=== PATIENT | female | born 1970 | race African-American/Black ===

== ENCOUNTER → 2018-12-09 | Outpatient (CLI) | payer OTHER | LOC: M.RAD 15:09 | DX: Z12.31 Encounter for screening mammogram for malignant neoplasm of breast (principal) ==

== ENCOUNTER 2019-01-15 12:35 | Emergency (ER) | payer OTHER ==
[~2019-01-15] VITALS: Ht 165.1 cm; Wt 144.2 kg
[2019-01-15] MEDS ORDERED: ASPIR 8181 MG PO (12:43)
[2019-01-15] MEDS ORDERED: ALDACTONE50 MG PO (12:43)
[2019-01-15] MEDS ORDERED: ENTRESTO 49 MG1 EACH PO (12:43)
[2019-01-15] MEDS ORDERED: CARVEDILOL12.5 MG PO (12:44)
[2019-01-15 12:52] LABS: ABSOLUTE BASOPHILS 0.1 thou/uL (0.0-0.2); ABSOLUTE EOSINOPHILS 0.1 thou/uL (0.0-0.7); ABSOLUTE LYMPHOCYTES 2.1 thou/uL (0.8-5.3); ABSOLUTE MONOCYTES 0.3 thou/uL (0.0-1.2); ABSOLUTE NEUTROPHILS 3.8 thou/uL (1.6-8.1); EOSINOPHILS 1.7 %; HEMATOCRIT 37.3 % (37.0-47.0); HEMOGLOBIN 12.3 gm/dL (12.0-15.0); LYMPHOCYTES 32.8 %; MCH 28.5 pg (26.0-34.0); MCHC 32.9 g/dL (28.0-37.0); MCV 86.7 fL (80.0-100.0); MONOCYTES 4.3 %; MPV 6.6 fl. (7.2-11.1); NUCLEATED RBCS 0 /100WBC; PLATELET COUNT* 322 thou/uL (150-400); POLYS 60.2 %; RDW-CV 14.1 % (10.5-14.5); WBC 6.3 thou/uL (4.0-11.0)
[2019-01-15 13:05] LABS: ANION GAP 6 mmol/L (7-16); BUN 13 mg/dL (7-18); CALCIUM 8.8 mg/dL (8.5-10.1); CHLORIDE 102 mmol/L (98-107); CO2 29 mmol/L (21-32); CREATININE 0.9 mg/dL (0.6-1.3); GLUCOSE 114 mg/dL (70-99); POTASSIUM 3.6 mmol/L (3.5-5.1); SODIUM 137 mmol/L (136-145)
[2019-01-15 13:10] LABS: ALBUMIN 3.3 g/dL (3.4-5.0); ALKALINE PHOSPHATASE 84 U/L (46-116); LIPASE 77 U/L (73-393); SGOT 11 U/L (15-37); SGPT 18 U/L (30-65); TOTAL BILIRUBIN 0.5 mg/dL (<0.1-1.0); TOTAL PROTEIN 7.8 g/dL (6.4-8.2); TROPONIN-I LEVEL <0.06 ng/mL (<0.06)
[2019-01-15 14:24] VITALS: BP 147/69
--- NOTE | 2019-01-15 18:30 | EKG ---
[place] [address] ELECTROCARDIOGRAM REPORT Name: KIRILLROMMEL Room: [facility]#: [id number] Admission: 01/15/19 Attend Phys: Discharge: 01/15/19 Date of : 72 Report #: [id number] THIS REPORT FOR: //name// [facility] Test Date: 2019-01-15 Test Time: 13:34:19 Pat Name: ROMMEL ROY Department: Room: Gender: F Claims Collector: ALEJANDRA : 1970 Requested By: Alberto Flower Order Number: [id number] MD: Edwin Palmer Measurements Intervals [place] Rate: 93 P: 53 DE: 167 QRS: 24 QRSD: 100 T: 112 QT: 359 QTc: 447 Interpretive Statements Sinus rhythm delayed R wave progression low voltage in precordial leads' consider dextrocardia No previous ECG available for comparison Electronically Signed On 01-15-2019 18:30:31 [employer] CONSULTANT by Edwin Palmer [email or web address] <ELECTRONICALLY SIGNED> By: Edwin Palmer MD, [facility] 01/15/19 1830 D: 02/1333 Edwin Palmer MD, FACC /EPI
== END 2019-01-15 14:24 | disposition home or self-care (01) ==
LOC: M.ERS 12:35
PROVIDERS: Emergency Medicine Emergency Medical Services
DX: R55 Syncope and collapse (principal); R05 Cough; I11.0 Hypertensive heart disease with heart failure; I50.9 Heart failure, unspecified; Z90.49 Acquired absence of other specified parts of digestive tract

== ENCOUNTER → 2019-06-09 | Outpatient (CLI) | payer OTHER ==
[~2019-06-09] MED LIST: ALDACTONE50 MG PO; ASPIR 8181 MG PO; CARVEDILOL12.5 MG PO; ENTRESTO 49 MG1 EACH PO
--- NOTE | 2019-06-09 15:27 | 2DMMODE ---
[place] [address] 2 D/M-MODE ECHOCARDIOGRAM Name: ROMMEL ROY Room: [facility]#: [id number] Admission: 06/09/19 Attend Phys: Edwin Palmer, Discharge: Date of : 72 Date of Service: 06/09/19 1527 Report #: [id number] THIS REPORT FOR: //name// APPROVED REPORT Study performed: 06/09/2019 14:21:43 EXAM: Comprehensive 2D, Doppler, and color-flow Echocardiogram Patient Location: Out-Patient BSA: 2.35 HR: 77 bpm BP: 138/80 mmHg Other Information Study Quality: Fair Technically limited study due to body habitus. Indications Congestive Heart Failure 2D Dimensions IVSd: 12.01 (7-11mm) LVOT Diam: 24.58 (18-24mm) LVDd: 41.93 mm PWd: 10.58 (7-11mm) Ascending Ao: 28.62 (22-36mm) LVDs: 27.49 (25-40mm) Aortic Root: 30.06 mm Volumes Left Atrial Volume (Systole) LA ESV Index: 15.90 mL/m2 Aortic Valve AoV Peak Patrick.: 1.11 m/s AO Peak Gr.: 4.91 mmHg LVOT Max P.87 mmHg AO Mean Gr.: 2.89 mmHg LVOT Mean P.95 mmHg LVOT Max V: 0.68 m/s AO V2 VTI: 19.99 cm LVOT Mean V: 0.45 m/s JAGUAR (VTI): 4.12 cm2 LVOT V1 VTI: 17.35 cm Mitral Valve E/A Ratio: 1.16 MV Decel. Time: 219.63 ms MV E Max Patrick.: 0.62 m/[place] [address] 2 D/M-MODE ECHOCARDIOGRAM Name: ROMMEL ROY Room: [facility]#: [id number] Admission: 06/09/19 Attend Phys: Edwin Palmer, Discharge: Date of : 72 Date of Service: 06/09/19 1527 Report #: [id number] MV PHT: 63.69 ms MVA (PHT): 3.45 cm2 TDI E/Lateral E': 5.64 E/Medial E': 4.43 Medial E' Patrick.: 0.14 m/s Lateral E' Patrick.: 0.11 m/s Pulmonary Valve PV Peak Patrick.: 1.01 m/s PV Peak Gr.: 4.07 mmHg Tricuspid Valve RAP Estimate: 5.00 mmHg TR Peak Gr.: 26.52 mmHg RVSP: 31.52 mmHg PA Pressure: 31.52 mmHg Left Ventricle The left ventricle is normal size. There is normal LV segmental wall motion. There is normal left ventricular wall thickness. Left ventricular systolic function is normal. LVEF is 60-65%. The left ventricular diastolic function is normal. Right Ventricle The right ventricle is normal size. The right ventricular systolic function is normal. Atria The left atrium size is normal. The right atrium size is normal. Aortic Valve The aortic valve is normal in structure. No aortic regurgitation is present. There is no aortic valvular stenosis. Mitral Valve The mitral valve is normal in structure. Trace mitral regurgitation. No evidence of mitral valve stenosis. Tricuspid Valve The tricuspid valve is normal in structure. Trace tricuspid regurgitation. No pulmonary hypertension. Pulmonic Valve The pulmonary valve is normal in structure. Mild [place] [address] 2 D/M-MODE ECHOCARDIOGRAM Name: JOHN ROYINIQUE Room: [facility]#: [id number] Admission: 06/09/19 Attend Phys: Edwin Palmer, Discharge: Date of : 72 Date of Service: 06/09/19 1527 Report #: [id number] Great Vessels The aortic root is normal in size. IVC is normal in size and collapses >50% with inspiration. Pericardium There is no pericardial effusion. <Conclusion> The left ventricle is normal size. There is normal left ventricular wall thickness. Left ventricular systolic function is normal. LVEF is 60-65%. The left ventricular diastolic function is normal. Trace mitral regurgitation. Trace tricuspid regurgitation. No pulmonary hypertension. IVC is normal in size and collapses >50% with inspiration. <ELECTRONICALLY SIGNED> By: Edwin Palmer MD, FACC 06/09/19 1527 1527 1527 Edwin Palmer MD, FACC /INF
== END ==
LOC: M.CRD 13:30
DX: I37.1 Nonrheumatic pulmonary valve insufficiency (principal); I42.8 Other cardiomyopathies

== ENCOUNTER → 2020-01-05 | Outpatient (CLI) | payer OTHER | LOC: M.RAD 09:54 | DX: M19.012 Primary osteoarthritis, left shoulder (principal) ==

== ENCOUNTER → 2020-06-04 | Outpatient (CLI) | payer OTHER | LOC: M.LAB 12:14 | PROVIDERS: ATTEND Internal Medicine Cardiovascular Disease | DX: Z11.59 Encounter for screening for other viral diseases (principal) ==

== ENCOUNTER → 2020-08-04 | Outpatient (CLI) | payer OTHER ==
[2020-08-04 08:29] LABS: ABSOLUTE BASOPHILS 0.1 thou/uL (0.0-0.2); ABSOLUTE EOSINOPHILS 0.1 thou/uL (0.0-0.7); ABSOLUTE LYMPHOCYTES 1.6 thou/uL (0.8-5.3); ABSOLUTE MONOCYTES 0.4 thou/uL (0.0-1.2); ABSOLUTE NEUTROPHILS 2.8 thou/uL (1.6-8.1); BASOPHILS 1.4 %; EOSINOPHILS 1.8 %; HEMATOCRIT 37.4 % (37.0-47.0); HEMOGLOBIN 12.6 gm/dL (12.0-15.0); LYMPHOCYTES 31.9 %; MCHC 33.8 g/dL (28.0-37.0); MCV 85.8 fL (80.0-100.0); MPV 6.2 fl. (7.2-11.1); NUCLEATED RBCS 0 /100WBC; PLATELET COUNT* 279 thou/uL (150-400); POLYS 56.9 %; RBC 4.36 mil/uL (4.20-5.00); RDW-CV 14.5 % (10.5-14.5)
[2020-08-04 08:44] LABS: ALBUMIN 3.5 g/dL (3.4-5.0); ALKALINE PHOSPHATASE 79 U/L (46-116); ANION GAP 8 mmol/L (7-16); BUN 16 mg/dL (7-18); CHLORIDE 103 mmol/L (98-107); CHOLESTEROL 126 mg/dL (<200); CO2 27 mmol/L (21-32); GLUCOSE 118 mg/dL (70-99); HDL CHOLESTEROL 43 mg/dL (>40); LDL CHOLESTEROL 75 mg/dL (<100); SGOT 11 U/L (15-37); SGPT 21 U/L (30-65); SODIUM 138 mmol/L (136-145); TC:HDL 2.9 Ratio (Not establshd); TOTAL BILIRUBIN 0.6 mg/dL (<0.1-1.0); TOTAL PROTEIN 7.6 g/dL (6.4-8.2); TRIGLYCERIDE 43 mg/dL (<150); VLDL 9 mg/dL (<40)
[2020-08-04 08:50] LABS: SERUM ASSESSMENT Clear
[2020-08-05 02:06] LABS: GLYCOHEMOGLOBIN (HGB A1C) 5.9 % (4.8-5.6)
== END ==
LOC: M.LAB 08:04
PROVIDERS: ATTEND Nurse Practitioner Family
DX: Z00.01 Encounter for general adult medical examination with abnormal findings (principal); I50.89 Other heart failure; R53.83 Other fatigue; E56.9 Vitamin deficiency, unspecified; R53.81 Other malaise

== ENCOUNTER → 2020-08-26 | Outpatient (CLI) | payer OTHER | LOC: M.MRI 16:30 | PROVIDERS: ATTEND Orthopaedic Surgery | DX: S83.242A Other tear of medial meniscus, current injury, left knee, initial encounter (principal); S83.282A Other tear of lateral meniscus, current injury, left knee, initial encounter; M25.462 Effusion, left knee; M17.12 Unilateral primary osteoarthritis, left knee; X58.XXXA Exposure to other specified factors, initial encounter; Y93.89 Activity, other specified; Y92.89 Other specified places as the place of occurrence of the external cause; Y99.8 Other external cause status ==

== ENCOUNTER → 2020-10-05 | Day surgery (SDC) | payer OTHER ==
[~2020-10-05] MED LIST changes: +HYDROCODON-ACE1 EAC7 PO; +TRAMADOL 50 MG50 MG PO
[2020-10-05 08:40] LABS: HEMATOCRIT 39.5 % (37.0-47.0); HEMOGLOBIN 13.1 gm/dL (12.0-15.0)
[2020-10-05 08:48] LABS: CALCIUM 8.6 mg/dL (8.5-10.1); CREATININE 0.9 mg/dL (0.6-1.3); POTASSIUM 3.7 mmol/L (3.5-5.1)
--- NOTE | 2020-10-05 10:53 | EKG ---
[place] [address] ELECTROCARDIOGRAM REPORT Name: KIRILLROMMEL N Room: [facility]#: [id number] Admission: 10/05/20 Attend Phys: Iraj Aguilera, Discharge: Date of : 72 Date of Service: 10/05/20 0755 Report #: [id number] THIS REPORT FOR: //name// [facility] Test Date: 2020-10-05 Test Time: 07:55:38 Pat Name: ROMMEL ROY Department: Room: Gender: Patient Access Associate: : 1970 Requested By: Iraj Aguilera Order Number: [id number] Reading MD: Sai Araiza Measurements Intervals [place] Rate: 90 P: 81 CO: 177 QRS: 34 QRSD: 114 T: 136 QT: 404 QTc: 495 Interpretive Statements Sinus rhythm Borderline intraventricular conduction delay Low voltage over anterior precordium Abnormal T, consider ischemia, lateral leads Compared to ECG 01/15/2019 13:34:19 T-wave abnormality now present Possible ischemia now present Poor R-wave progression persists Electronically Signed On 10-05-2020 10:53:03 GALLERY DIRECTOR by Sai Araiza [email or web address] <ELECTRONICALLY SIGNED> By: Sai Araiza MD, [facility] 10/05/20 1053 0755 0755 Sai Araiza MD, [facility] /EPI
--- NOTE | 2020-10-11 09:06 | OP ---
[address] [address] OPERATIVE REPORT Name: ROMMEL ROY Charlie Room: [facility]#: [id number] Admission: 10/05/20 Attend Phys: Iraj Aguilera II Discharge: Date of : 72 Report #: [id number] THIS REPORT FOR: //name// cc: Mikaela Burton Tami FNP ~ CC: Iraj Burton DATE OF SERVICE: 10/05/2020 PREOPERATIVE DIAGNOSIS: Left knee medial meniscus tear. POSTOPERATIVE DIAGNOSES: 1. Left knee medial meniscus tear. 2. Lateral meniscus tear. 3. Grade 3 chondromalacia of patellofemoral groove. 4. Grade 3 chondromalacia of medial femoral condyle. 5. Grade 3 chondromalacia of lateral femoral condyle. PROCEDURES PERFORMED: 1. Left knee arthroscopic surgery with partial medial and lateral meniscectomy. 2. Abrasion chondroplasty of patellofemoral groove down to bleeding bone. 3. Abrasion chondroplasty of the medial femoral condyle down to bleeding bone. 4. Abrasion chondroplasty of lateral femoral condyle down to bleeding bone. SURGEON: Iraj Aguilera II, DO. JEWELRY POLISHER: CARLOTA Smith. ANESTHESIA: Per operative record. ESTIMATED BLOOD LOSS: Minimal. ANTIBIOTICS: Per operative record. DRAINS: None. COMPLICATIONS: None. CONDITION OF THE PATIENT: Stable to recovery room. DESCRIPTION OF PROCEDURE: The patient was taken to the operative suite and placed supine on the operating table, given appropriate anesthesia. The patient's left knee was sterilely prepped and draped. Surgery began by medial and lateral portal incision. The arthroscope advanced in the joint. There was shown to be posterior horn medial meniscus tear, [place] [address] OPERATIVE REPORT Name: ROMMEL ROY Room: [facility]#: [id number] Admission: 10/05/20 Attend Phys: Iraj Aguilera II Discharge: Date of : 72 Report #: [id number] margin. Utilizing baskets and shaver, this was resected back to good stable margins and then smoothed utilizing Coblation wand, was also shown to be a lateral meniscus tear noted to the posterior horn extending down to the lateral margin. Utilizing baskets and shaver, this was resected and then smoothed using Coblation wand. There was a grade 3 chondromalacia of patellofemoral groove. Utilizing a shaver, the flaps of cartilage were removed down to stable tissue and then down to bleeding bone and then smoothed using Coblation wand. A medial femoral condyle was also debrided utilizing shaver down to bleeding bone and then smoothed utilizing Coblation wand and lateral femoral condyle was debrided utilizing shaver down to bleeding bone and then smoothed utilizing Coblation wand. ACL and PCL appeared intact to testing. The medial and lateral collateral ligaments was appeared intact to testing. Final irrigation of the knee was then performed, it was then closed utilizing a 3-0 nylon in simple fashion. Dermabond and sterile dressing applied. The patient transported to recovery room in stable condition. Counts were correct throughout the procedure. <ELECTRONICALLY SIGNED> By: Iraj Aguilera II, DO 10/11/20 0906 0011 [id number] Aguilera II DO /nt
== END | disposition home or self-care (01) ==
LOC: M.SUR 05:12
PROVIDERS: ATTEND Orthopaedic Surgery
DX: M25.562 Pain in left knee (principal); M23.222 Derangement of posterior horn of medial meniscus due to old tear or injury, left knee; M23.252 Derangement of posterior horn of lateral meniscus due to old tear or injury, left knee; M19.012 Primary osteoarthritis, left shoulder; M94.262 Chondromalacia, left knee; I11.0 Hypertensive heart disease with heart failure; I50.9 Heart failure, unspecified; Z98.890 Other specified postprocedural states; Z79.899 Other long term (current) drug therapy; Z90.49 Acquired absence of other specified parts of digestive tract

== ENCOUNTER → 2022-01-10 | Outpatient (CLI) | payer OTHER ==
[2022-01-10 08:50] LABS: HEMATOCRIT 35.6 % (37.0-47.0); HEMOGLOBIN 11.7 gm/dL (12.0-15.0); MCH 28.6 pg (26.0-34.0); MCHC 32.8 g/dL (28.0-37.0); MCV 87.1 fL (80.0-100.0); MPV 6.6 fl. (7.2-11.1); RBC 4.09 mil/uL (4.20-5.00); RDW-CV 14.1 % (10.5-14.5); WBC 5.7 thou/uL (4.0-11.0)
[2022-01-10 08:53] LABS: CALCIUM 8.4 mg/dL (8.5-10.1); CREATININE 1.1 mg/dL (0.6-1.3); POTASSIUM 4.3 mmol/L (3.5-5.1)
== END ==
LOC: M.LAB 08:04
PROVIDERS: ATTEND Nurse Practitioner
DX: I42.8 Other cardiomyopathies (principal); R06.02 Shortness of breath

== ENCOUNTER → 2022-01-22 | Outpatient (CLI) | payer OTHER ==
--- NOTE | 2022-01-22 10:10 | 2DMMODE ---
[place] [address] 2 D/M-MODE ECHOCARDIOGRAM Name: SOTERO ROYLANDRY CROWLEY Room: [facility]#: [id number] Admission: 01/22/22 Attend Phys: Sylvia Reyes, Discharge: Date of : 72 Date of Service: 01/22/22 1010 Report #: [id number] THIS REPORT FOR: cc: Mikaela Burton Tami FNP Blick, David R. MD [facility] ~ APPROVED REPORT Study performed: 01/22/2022 08:59:30 EXAM: Comprehensive 2D, Doppler, and color-flow Echocardiogram Patient Location: Out-Patient BSA: 2.45 HR: 82 bpm BP: 128/80 mmHg Other Information Study Quality: Fair Indications Cardiomyopathy 2D Dimensions IVSd: 11.90 (7-11mm) LVOT Diam: 21.16 (18-24mm) LVDd: 49.00 mm PWd: 10.91 (7-11mm) Ascending Ao: 29.17 (22-36mm) LVDs: 29.90 (25-40mm) Aortic Root: 31.76 mm Volumes Left Atrial Volume (Systole) LA ESV Index: 12.80 mL/m2 Aortic Valve AoV Peak Patrick.: 1.10 m/s AO Peak Gr.: 4.84 mmHg LVOT Max P.36 mmHg AO Mean Gr.: 2.56 mmHg LVOT Mean P.19 mmHg LVOT Max V: 0.77 m/s AO V2 VTI: 22.93 cm LVOT Mean V: 0.51 m/s JAGUAR (VTI): 2.48 cm2 LVOT V1 VTI: 16.16 cm Mitral Valve MV Decel. Time: 287.[place] [address] 2 D/M-MODE ECHOCARDIOGRAM Name: ROMMEL ROY Room: [facility]#: [id number] Admission: 01/22/22 Attend Phys: Sylvia Reyes, Discharge: Date of : 72 Date of Service: 01/22/22 1010 Report #: [id number] MV PHT: 83.51 ms MVA (PHT): 2.63 cm2 TDI Medial E' Patrick.: 0.07 m/s Lateral E' Patrick.: 0.09 m/s Pulmonary Valve PV Peak Patrick.: 0.93 m/s PV Peak Gr.: 3.45 mmHg Tricuspid Valve RAP Estimate: 5.00 mmHg TR Peak Gr.: 21.34 mmHg RVSP: 26.34 mmHg PA Pressure: 26.34 mmHg Left Ventricle The left ventricle is normal size. There is normal LV segmental wall motion. There is normal left ventricular wall thickness. Left ventricular systolic function is normal. The left ventricular ejection fraction is within the normal range. LVEF is 55-60%. Grade I - abnormal relaxation pattern. Right Ventricle The right ventricle is normal size. The right ventricular systolic function is normal. Atria The left atrium size is normal. The right atrium size is normal. Aortic Valve The aortic valve is normal in structure. No aortic regurgitation is present. There is no aortic valvular stenosis. Mitral Valve The mitral valve is normal in structure. Mild mitral regurgitation. No evidence of mitral valve stenosis. Tricuspid Valve The tricuspid valve is normal in structure. Mild tricuspid regurgitation. Pulmonic Valve The pulmonary valve is normal in structure. Mild [place] [address] 2 D/M-MODE ECHOCARDIOGRAM Name: ROMMEL ROY Room: [facility] MARCIA Benitez#: [id number] Admission: 01/22/22 Attend Phys: Sylvia Reyes, Discharge: Date of : 72 Date of Service: 01/22/22 1010 Report #: [id number] Great Vessels The aortic root is normal in size. IVC is normal in size and collapses >50% with inspiration. Pericardium There is no pericardial effusion. <Conclusion> Left ventricular systolic function is normal. The left ventricular ejection fraction is within the normal range. <ELECTRONICALLY SIGNED> By: Karri Park MD, FAC 01/22/22 1010 1010 1010 Karri Park MD, [facility] /INF
== END ==
LOC: M.CRD 01-17 09:00
PROVIDERS: ATTEND Nurse Practitioner
DX: I08.8 Other rheumatic multiple valve diseases (principal)